=== PATIENT | female | born 1985 | race Two or more races ===

== ENCOUNTER 2021-01-21 23:32 | Emergency (ER) | payer MEDICAID ==
[~2021-01-21] VITALS: Ht 157.5 cm; Wt 68.9 kg
[2021-01-22 07:51] VITALS: BP 117/70
== END 2021-01-22 08:08 | disposition home or self-care (01) ==
LOC: ER 23:32
DX: R51.9 Headache, unspecified (principal)
CPT/HCPCS: 70450